=== PATIENT | female | born 1940 | race Caucasian/White ===

== ENCOUNTER 2016-09-26 19:42 | Inpatient (IN) ==
[2016-09-26 21:17] LABS: MANUAL DIFF NEEDED? NO
[2016-09-26 21:19] LABS: BASO% 0.3 % (0.0-0.8); EOS% 2.2 % (0.0-10.0); HEMATOCRIT 30.8 % (37.0-47.0); IMM GRAN# 0.02 X1000 (0.0-0.04); IMM GRAN% 0.1 % (0.0-0.5); LYMPH# 2.71 X1000 (1.2-3.4); LYMPH% 20.1 % (20.5-51.1); MCH 30.7 PG (27-31); MCHC 32.5 g/dL (33-37); MCV 94.5 FL (81-99); MONO# 0.93 X1000 (0.11-0.59); MONO% 6.9 % (1.7-9.3); MPV 8.5 FL (7.4-10.4); NEUT% 70.4 % (42.2-75.2); PLT 521 X1000 (130-400); RBC 3.26 XMIL (4.2-5.4)
[2016-09-26 21:38] LABS: ALBUMIN 3.4 g/dL (3.5-5.0); CALCIUM 9.2 mg/dL (8.8-10.2); POTASSIUM 4.7 mmol/L (3.5-5.1); TOTAL BILIRUBIN 0.23 mg/dL (0.20-1.00); TOTAL PROTEIN 7.9 g/dL (6.3-8.3)
[2016-09-26 22:31] LABS: URINE SOURCE CLEAN CATCH
[2016-09-26 22:33] LABS: BILIRUBIN URINE NEGATIVE (NEGATIVE); BLOOD URINE MODERATE (NEGATIVE); COLOR ORANGE; GLUCOSE URINE NEGATIVE (NEGATIVE); LEUKOCYTES URINE LARGE (NEGATIVE); NITRITE URINE POSITIVE (NEGATIVE); PROTEIN URINE 70 mg/dL (NEGATIVE); SP GRAVITY URINE 1.008; TURBIDITY URINE HAZY (CLEAR); UROBILINOGEN URINE NORMAL (NORMAL)
[2016-09-26 22:35] LABS: URINE MICRO REVIEW NEEDED? YES
[2016-09-26] MEDS ORDERED: ROCEPHIN 1 GM/NS 1 GM/50 ML IVPB IV ONE (22:35)
[2016-09-26 22:58] LABS: UR EPITHELIAL CELLS <10 /HPF (<10); URINE BACTERIA 4+ /HPF; URINE CULTURE NEEDED? YES; URINE RBC TNTC /HPF (<10); URINE WBC TNTC /HPF (<10)
[2016-09-26] MEDS ORDERED: ZOFRAN IV PRN (23:42)
[2016-09-26] MEDS ORDERED: COLACE PO PRN (23:42)
--- NOTE | 2016-09-27 00:44 | ED EKG INTERP ---
This chart was entered by Clyde Wills Scribe, acting as scribe for Gasper Szymanski MD. EKG Interpretation - EKG Time of EKG reading by physician:: 20:44 EKG Read and Signed by:: Gasper Szymanski EKG Interpretation (*Must complete 3 of following elements*): Abnormal (Minimal voltage criteria for LVH, may be normal variant) Rate: 44 Rhythm: Marked sinus bradycardia with marked sinus arrhythmia This chart was documented by the indicated scribe, (Clyde Wills Scribe) and accurately reflects the services I performed and decisions made by me, Gasper Szymanski MD, as attested by the provider's signature.
--- NOTE | 2016-09-27 00:45 | PROVIDER DOCUMENTATION ---
This chart was entered by Clyde Wills Scribe, acting as scribe for Gasper Szymanski MD. HPI-Respiratory General - General Chief Complaint: General Adult Stated Complaint: SHOUDLER PAIN Time Seen by Provider: 09/26/16 20:42 Source: patient Allergies/Adverse Reactions: Patient Allergies Allergy/AdvReac Type Severity Reaction Status Date / Time codeine AdvReac NAUSEA/VOMI Verified 09/26/16 21:42 TING meperidine HCl * AdvReac NAUSEA Verified 09/26/16 21:42 [From Demerol] morphine AdvReac NAUSEA/VOMI Verified 09/26/16 21:42 TING prednisone AdvReac KEEPS HER Verified 09/26/16 21:42 AWAKE Home Medications: Home Medication List Medication Instructions Recorded Confirmed Last Taken Type ATORVAstatin [Lipitor] 1 tab PO DAILY 03/29/14 09/26/16 09/26/16 History Aspirin/Calcium Carbonate/Mag 1 tab PO DAILY 03/29/14 09/26/16 09/26/16 History [Aspirin Buffered 325 mg Tab] Fluoxetine [Prozac] 20 mg PO DAILY 03/29/14 09/26/16 07/27/16 09:00 History Gabapentin 300 mg PO 4XDAY 03/29/14 09/26/16 09/26/16 History Levothyroxine [Synthroid] 50 microgm PO DAILY 03/29/14 09/26/16 09/26/16 History Lisinopril/Hydrochlorothiazide 1 each PO HS 03/29/14 09/26/16 09/26/16 History [Lisinopril-Hctz 20-12.5 mg Tab] Metoprolol [Lopressor] 1 tab PO BID 03/29/14 09/26/16 09/26/16 History Omeprazole 20 mg PO DAILY 03/29/14 09/26/16 09/26/16 History Tramadol [Ultram] 1 tab PO PRN PRN 03/29/14 09/26/16 07/26/16 23:30 History Nitroglycerin [Nitrostat] 0.4 mg SL PRN PRN 02/11/15 09/26/16 07/23/16 14:00 History Acetaminophen [Tylenol] 500 mg PO Q6H PRN PRN 02/12/16 09/26/16 07/26/16 23:30 History Diphenhydramine [Benadryl] 25 mg PO PRN PRN 02/12/16 09/26/16 07/26/16 23:30 History Docusate Sodium [Colace] 100 mg PO PRN PRN 02/12/16 09/26/16 07/26/16 23:30 History Multivitamin,Therapeutic 1 each PO HS 02/12/16 09/26/16 09/26/16 History [Thera-Tabs] Diphenoxylate/Atropine [Lomotil] 1 each PO 4XDAY PRN PRN 07/17/16 09/26/1607/26 23:30 History Piroxicam 20 mg PO DAILY 07/17/16 09/26/16 09/26/16 History - History of Present Illness-Resp Nature of Presenting Problem: Pt is a 76 yof who presents to ER with CC of shortness of breath x1 month. Pt reports that she has started developing worsening shortness of breath over the past month and has also developed generalized weakness/fatigue. On exam, pt is bradycardic and lethargic. Quality of Pain: reports: none Severity in ED: reports: moderate Onset/Duration: reports: other (x1 month) Timing: reports: still present, getting worse Cough Quality/Degree: reports: no cough Associated Symptoms: reports: cough, shortness of breath, short of breath, other (fatigue/lethargy). denies: chest pain/soreness, dizziness, earache, facial pain, fever/chills, flu-like symptoms, headache, heart racing, hurts to breathe, hyperventilating, lightheadedness, muscle/bodyaches, nasal congestion, nasal drainage, sinus pain, sore throat, sweaty, wheezing Similar Symptoms Previously?: Yes Recently seen or treated by another doctor?: No Review of Systems - Adult - REVIEW OF SYSTEMS - ADULT Constitutional: reports: julianque. denies: chills, fever, night sweats, weight gain, weight loss Eyes: reports: no symptoms reported Ears, Nose, Mouth & Throat: reports: no symptoms reported Cardiovascular: denies: chest pain, edema, heart murmur, irregular heart rate, orthopnea, palpitations, poor circulation, PND, syncope Respiratory: reports: shortness of breath. denies: chronic cough, cough, dyspnea on exertion, excessive sputum production, hemoptysis, pleurisy, wheezing Gastrointestinal: reports: no symptoms reported Genitourinary: reports: no symptoms reported Musculoskeletal: reports: no symptoms reported Integumentary: reports: no symptoms reported Neurological: reports: no symptoms reported Psychiatric: reports: no symptoms reported Endocrine: reports: no symptoms reported Hematologic/Lymphatic: reports: no symptoms reported Allergic/Immunologic: reports: no symptoms reported All Other Systems: Reviewed and Negative Past History - Adult - PAST MEDICAL HISTORY-ADULT Review of Records: reports: Nursing Assessment Review, Medications Reviewed Cardiovascular: reports: HTN Gastrointestinal: reports: GERD Musculoskeletal: reports: neck/back injury - IMMUNIZATION STATUS Childhood Immunizations: See Nurse Assessment Flu Vaccine: See Nurse Assessment Physical Exam-General - PHYSICAL EXAM-ADULT Initial Vital Signs Reviewed: Yes - CONSTITUTIONAL General Appearance: appears well, alert, mild distress, lethargic, slow to respond. negative: no apparent distress - EYES Eyes: PERRL/EOMI, pink conjunctivae, fundi clear, no AV nicking. negative: pale conjunctivae, photophobia, sclera injected, scleral icterus - HEAD, EARS, NOSE, MOUTH & THROAT HENMT: normocephalic/atraumatic, moist mucous membranes, normal ENT inspection, TMs normal, pharynx normal. negative: pharyngeal erythema, tonsillar exudate, TM abnormal - NECK Neck: non-tender, full range of motion, supple, normal inspection. negative: C- spine tenderness, limited range of motion, lymphadenopathy - RESPIRATORY Respiratory: chest non-tender, lungs clear, normal breath sounds, no pleuratic chest pain, no respiratory distress, no accessory muscle use - CARDIOVASCULAR Cardiovascular: normal peripheral pulses, bradycardia, systolic murmur. negative: regular rate, rhythm - GASTROINTESTINAL (ABDOMEN) Abdominal Exam: normal bowel sounds, non tender, soft, no organomegaly, no pulsatile mass. negative: abnormal bowel sounds, distended, tenderness - MUSCULOSKELETAL Back Exam: normal inspection, no CVA tenderness, no vertebral tenderness. negative: CVA tenderness, decreased range of motion, ecchymosis, muscle spasm, swelling, vertebral tenderness Extremity: normal range of motion, non-tender, normal gait, normal inspection, no pedal edema, no calf tenderness, normal capillary refill. negative: deformity, erythema, inflammation, swelling, tenderness - SKIN Integumentary: normal turgor, warm/dry, pallor, swelling (bilateral periorbital swelling). negative: normal color, abrasion(s), diaphoresis, ecchymosis, erythema, laceration(s), tenderness, warm - NEUROLOGIC Neurologic: tripoler II-XII nml as tested, grossly normal, no motor/sensory deficits . negative: facial droop, focal weakness, motor weakness, sensory deficit - PSYCHIATRIC Psych/Mental Status: normal thought content, normal thought process, oriented x 3, depressed affect. negative: normal mood/affect Progress - PLAN OF CARE/RESULTS Progress/Plan/Lab Results: Vital Signs - 8 hr 09/26/16 20:23 09/26/16 23:31 Temperature 98.2 F Pulse Rate 36 L 60 Respiratory Rate 20 18 Blood Pressure 102/52 180/85 O2 Sat by Pulse Oximetry 98 94 L Laboratory Results - last 24 hr 09/26/16 09/26/16 09/26/16 21:02 21:02 21:02 WBC 13.49 H RBC 3.26 L Hgb 10.0 L Hct 30.8 L MCV 94.5 MCH 30.7 MCHC 32.5 L RDW Std Deviation 12.9 Plt Count 521 H MPV 8.5 Immature Gran % (Auto) 0.1 Neut % (Auto) 70.4 Lymph % (Auto) 20.1 L [place] % (Auto) 6.9 Eos % (Auto) 2.2 Baso % (Auto) 0.3 Immature Gran # (Auto) 0.02 Neut # (Auto) 9.49 H Lymph # (Auto) 2.71 [place] # (Auto) 0.93 H Eos # (Auto) 0.30 Baso # (Auto) 0.04 Sodium 131 L Potassium 4.7 Chloride 95 L Carbon Dioxide 18 L Anion Gap 18 BUN 43 H Creatinine 2.1 H Estimated GFR/1.73 m2 23 BUN/Creatinine Ratio 20 Glucose 102 Calculated Osmolality 274 Calcium 9.2 Total Bilirubin 0.23 AST 22 ALT 9 L Alkaline Phosphatase 96 Troponin T < 0.010 Total Protein 7.9 Albumin 3.4 L Globulin 4.5 Albumin/Globulin Ratio 0.8 TSH Urine Source Urine Color Urine Turbidity Urine pH Ur Specific [place] Urine Protein Ur Glucose (Stick) Ur Ketones (Stick) Urine Blood Urine Nitrite Urine Bilirubin Urobilinogen Dipstick Urine Leukocytes Urine WBC (Auto) Urine RBC (Auto) U Epithel Cells (Auto) Urine Bacteria (Auto) Urine Crystals Small Round Cells Urine Casts Urine Yeast-like Cells 09/26/16 09/26/16 21:02 22:23 WBC RBC Hgb Hct MCV MCH MCHC RDW Std Deviation Plt Count MPV Immature Gran % (Auto) Neut % (Auto) Lymph % (Auto) [place] % (Auto) Eos % (Auto) Baso % (Auto) Immature Gran # (Auto) Neut # (Auto) Lymph # (Auto) [place] # (Auto) Eos # (Auto) Baso # (Auto) Sodium Potassium Chloride Carbon Dioxide Anion Gap BUN Creatinine Estimated GFR/1.73 m2 BUN/Creatinine Ratio Glucose Calculated Osmolality Calcium Total Bilirubin AST ALT Alkaline Phosphatase Troponin T Total Protein Albumin Globulin Albumin/Globulin Ratio TSH 0.90 Urine Source CLEAN CATCH Urine Color ORANGE Urine Turbidity HAZY Urine pH 7.0 Ur Specific [place] 1.008 Urine Protein 70 A Ur Glucose (Stick) NEGATIVE Ur Ketones (Stick) NEGATIVE Urine Blood MODERATE A Urine Nitrite POSITIVE A Urine Bilirubin NEGATIVE Urobilinogen Dipstick NORMAL Urine Leukocytes LARGE A Urine WBC (Auto) TNTC A Urine RBC (Auto) TNTC A U Epithel Cells (Auto) <10 Urine Bacteria (Auto) 4+ Urine Crystals Not Reportable Small Round Cells Not Reportable Urine Casts Not Reportable Urine Yeast-like Cells NONE SEEN Orders Category Date Time Status Admit - [facility] Routine AdmDCTranf 09/26/16 23:42 Ordered Activity - Up with Assistance ORDERED Care 09/26/16 23:42 Active Currently Rec Anticoagulation [QM] ROUTINE Care 09/26/16 23:42 Active Intake and Output-Strict ORDERED Care 09/26/16 23:42 Active Nursing- MD Consult Request ROUTINE Care 09/26/16 23:42 Active Vital Signs Order Q 6-HR ASSESS Care 09/26/16 23:42 Active Physician/Provider Consults Routine Cons 09/26/16 23:42 Ordered Regular Diet Diet 09/27/16 07:00 Active CHEST-PORTABLE [RAD] Stat Exams 09/26/16 21:[address] THORAX W/O CONTRAST [CT] Stat Exams 09/26/16 23:42 Taken BASIC METABOLIC PANEL [CHEM] Routine Lab 09/27/16 06:00 Ordered CBC WITH DIFF [HEME] Routine Lab 09/27/16 06:00 Ordered CBC WITH ELECTRONIC DIFF [HEME] Stat Lab 09/26/16 21:02 Completed COMPREHENSIVE METABOLIC PANEL [CHEM] Stat Lab 09/26/16 21:02 Completed TROPONIN T Stat Lab 09/26/16 21:02 Completed TSH Stat Lab 09/26/16 21:02 Completed UA NIMS W/REFLEX CULT [URINALYSIS] Stat Lab 09/26/16 22:23 Completed URINE CULTURE [RM] Routine Lab 09/26/16 23:20 Received URINE CULTURE [RM] Stat Lab 09/26/16 23:42 Uncollected URINE MANUAL MICROSCOPIC [URINALYSIS] Stat Lab 09/26/16 22:23 Completed 0.9% Sodium Chloride Inj [Ns] 1,000 ml Med 09/26/16 23:42 Active IV 100 mls/hr ATORVAstatin [Lipitor] Med 09/27/16 21:00 Active 10 mg PO HS Acetaminophen [Tylenol] Med 09/26/16 23:42 Active 500 mg PO Q6H PRN PRN Amlodipine [Norvasc] Med 09/26/16 23:42 Active 5 mg PO BID Aspirin EC Med 09/27/16 09:00 Active 1 mg PO DAILY CefTRIAXONE 1 GM/NS [Rocephin 1 gm/Ns] Med 09/26/16 22:35 Discontinued 1 gm in 50 ml IV NOW CefTRIAXONE 1 GM/NS [Rocephin 1 gm/Ns] Med 09/27/16 23:00 Active 1 gm in 50 ml IV Q24H Docusate Sodium [Colace] Med 09/26/16 23:42 Active 100 mg PO DAILY PRN PRN Fluoxetine [Prozac] Med 09/27/16 09:00 Active 20 mg PO DAILY Gabapentin [Neurontin] Med 09/27/16 09:00 Active 300 mg PO 4XDAY Levothyroxine [Synthroid] Med 09/27/16 07:00 Active 50 microgm PO DAILY@0700 Nitroglycerin Sl [Nitroglycerin] Med 09/26/16 23:42 Active 0.4 mg SL PRN PRN Omeprazole [Prilosec] Med 09/27/16 09:00 Active 20 mg PO DAILY@0700 Ondansetron [Zofran] Med 09/26/16 23:42 Active 4 mg IV Q4H PRN PRN Telemetry [OM.EQ] Routine Oth 09/26/16 23:42 Active EKG [EKG] Stat Ther 09/27/16 07:00 Ordered Echo Spec/Color Dop W/O Contra Routine Ther 09/27/16 08:00 Ordered Transfer/Admit Order [TRANSFER] Routine Transfer 09/26/16 23:06 Completed Result Diagrams: 09/26/16 21:02 09/26/16 21:02 - XRAY 1 XRAY: Bilateral XRAY Study: Chest Impression: See EMR Report XRAY Interpretation: Clear - CONSULTS/PCP/HOSPITALIST Notification #1 *Consult/PCP/Hospitalist*: Dr. Boland ( Drive Man) Time Discussed: 22:08 Consult Disposition: Admit (stop labetolol and admit overnight) #2 Consult: Dr. Guzman (Hospitalist) Time Discussed: 22:40 Consult Disposition: Admit Departure - Departure Time of Disposition Decision: 22:08 DIAGNOSIS: Bradycardia Disposition: ADMITTED INPATIENT 09 Certified Medical Emergency: Emergent Condition: Stable This chart was documented by the indicated scribe, (Clyde Wills Scribe) and accurately reflects the services I performed and decisions made by , Gasper Szymanski MD, as attested by the provider's signature.
[2016-09-27] MEDS: NORVASC PO SCH ×3 (00:55→20:35)
[2016-09-27] MEDS: NS 1,000 ML IV SCH ×5 (00:57→18:43)
[2016-09-27] MEDS: NITROGLYCERIN SL PRN ×3 (02:14→11:29)
[2016-09-27] MEDS: TYLENOL PO PRN ×3 (02:38→18:15)
--- NOTE | 2016-09-27 02:38 | HISTORY AND PHYSICAL ---
PRIMARY CARE PHYSICIAN: Dr. Melvin Bishop. CHIEF COMPLAINT: Shortness of breath, mild chest pain. HISTORY OF PRESENT ILLNESS: This is a 75-year-old female with past medical history of hypertension, hypothyroidism, hyperlipidemia and GERD, who presented to the emergency department complaining of shortness of breath. She reports that during the previous day but getting worse today. She noted short of breath on short distance. So she has got to stop pretty often because of shortness of breath. She denies any fever or chills. She reports mild chest pain in the right side of the thorax. Here in the ER, she was evaluated and found out to have a symptomatic bradycardia with heart rate between [address] Szymanski from the ER has talked with sewing machines salesperson Cardiology who recommends to admit this patient as an observation. PAST MEDICAL HISTORY: 1. Hypertension. 2. Severe osteoarthritis. PAST SURGICAL HISTORY: 1. Bilateral hip replacement. 2. Bilateral knee replacement. SOCIAL HISTORY: She leaves with her son and she denies drinking alcohol, using tobacco or using illicit drugs. ALLERGIES: She is not allergic to any medication but she reports that every time she used opiates that makes her feel nauseated. PHYSICAL EXAMINATION: VITALS: Temperature 98.2 degrees, heart rate 36, respiratory rate 20, blood pressure 102/65, O2 saturation 98% on room air. GENERAL: This is a 76-year-old female lying in bed in no acute distress. HEENT: Head normocephalic, atraumatic. Anicteric sclerae and pale conjunctivae. Mucous membranes moist. Pupils equal, round, and reactive to light and accommodation. NECK: Supple. No JVD noted. No carotid bruits. No lymphadenopathy. No thyromegaly. CARDIOVASCULAR: S1, S2 heard present but bradycardic. No murmurs, gallops, or rubs. RESPIRATORY: Clear bilaterally to auscultation. No work of breathing or using accessory muscles. ABDOMEN: Soft, nontender to palpation. Bowel sounds present. No organomegaly. EXTREMITIES: No clubbing, cyanosis, or edema. Peripheral pulses present in both legs. NEUROLOGICAL: Patient is alert and oriented x3. Able to move 4 extremities. Cranial nerves 2-12 are grossly normal. LABORATORY DATA: White cell count 13.49, hemoglobin 10.0, hematocrit 30.8, platelets 521,000. BMP shows creatinine 2.1 but normal few months ago at 0.6 with positive urinalysis. ASSESSMENT AND PLAN: 1. Symptomatic bradycardia. 2. Acute kidney injury. 3. Urinary tract infection. 4. Hypertension. 5. Patient is going to be admitted to the hospital for symptomatic bradycardia most likely related to metoprolol that she was on not 25 mg p.o. b.i.d. At this time, we are going to of course hold this medication. Cardiology has been informed about this patient and they recommend to admit to the hospital with further recommendations. We will consult Cardiology in the morning. 6. For MARÍA, the renal function was okay a few months ago and I guess because this patient has been on NSAIDs, in this case piroxicam, plus she is on lisinopril the renal function is today the creatinine today is 2.1. We will provide IV fluids and we will check BMP daily. 7. UTI, the patient has received 1 dose of ceftriaxone 1 g IV q.24 hours. We will wait for the results of the final urine culture. 8. Hypertension. We will stop lisinopril and we will add amlodipine 5 mg p.o. b.i.d. 9. Her primary care physician, Dr. Melvin Bishop, or one of his associates will take care of this patient in the morning. cc: MD Melvin Dozier MD MTDD
[2016-09-27] MEDS: PRILOSEC PO SCH (08:27)
[2016-09-27] MEDS: NEURONTIN PO SCH ×4 (08:27→20:35)
[2016-09-27] MEDS: SYNTHROID PO SCH (08:28)
[2016-09-27] MEDS: PROZAC PO SCH (08:28)
[2016-09-27] MEDS ORDERED: ASPIRIN EC PO SCH (09:00)
[2016-09-27] MEDS: ASPIRIN EC PO SCH (09:17)
--- NOTE | 2016-09-27 09:33 | Diag Imaging Result Document ---
PROCEDURE NAME: CHEST-PORTABLE - 09/26/2016 PORTABLE CHEST: COMPARISON: 11/22/2015. FINDINGS: The lungs are well expanded. The heart is mildly prominent. The vessels are not distended. No pneumonia. No pleural effusions identified. IMPRESSION: Cardiomegaly, but no other evidence of congestive failure.
--- NOTE | 2016-09-27 10:28 | Diag Imaging Result Document ---
PROCEDURE NAME: CT THORAX W/O CONTRAST - 09/26/2016 CT CHEST WITHOUT CONTRAST: TECHNIQUE: Dose reduction protocol. FINDINGS: No pleural effusions. The heart is mildly enlarged. The ascending thoracic aorta measures 3.9 cm. Prominent coronary artery calcifications. There are several calcified right hilar lymph nodes. No enlarged mediastinal lymph nodes. There is a calcified granuloma in the right lower lobe. No consolidation. Mild central vascular prominence. No lung mass. Limited images through the upper abdomen reveal a cholecystectomy with either a left upper pole renal cyst or dilated renal pelvis. IMPRESSION: 1. There is evidence of a prior granulomatous infection, but no acute pneumonia. 2. Cardiomegaly with prominent coronary artery calcifications. A preliminary report was given at 12:21 a.m. MTDD
--- NOTE | 2016-09-27 10:32 | PROGRESS NOTE ---
DATE: 09/27/2016 SUBJECTIVE: Ms. Galina Cee was admitted yesterday with shortness of breath. She has a urinary tract infection. She has acute kidney injury and had severe bradycardia. She has mild cardiomegaly. We are going to continue the current management. She is getting IV ceftriaxone, which we will continue. Urine culture has been done. CT scan of the thorax has been ordered. We are going to get the cardiology consult with her, and watch her closely. cc: Melvin Bishop MD
[2016-09-27 11:59] LABS: MANUAL DIFF NEEDED? NO
[2016-09-27 12:23] LABS: BASO% 0.4 % (0.0-0.8); EOS# 0.35 X1000 (0.0-0.7); EOS% 3.2 % (0.0-10.0); HEMATOCRIT 28.4 % (37.0-47.0); HEMOGLOBIN 9.1 g/dL (12.0-16.0); IMM GRAN# 0.02 X1000 (0.0-0.04); IMM GRAN% 0.2 % (0.0-0.5); LYMPH# 1.64 X1000 (1.2-3.4); LYMPH% 14.8 % (20.5-51.1); MCH 30.7 PG (27-31); MCV 95.9 FL (81-99); MONO# 0.62 X1000 (0.11-0.59); MONO% 5.6 % (1.7-9.3); MPV 8.3 FL (7.4-10.4); NEUT% 75.8 % (42.2-75.2); PLT 440 X1000 (130-400); RBC 2.96 XMIL (4.2-5.4)
[2016-09-27 12:30] LABS: POTASSIUM 4.8 mmol/L (3.5-5.1)
--- NOTE | 2016-09-27 13:31 | CONSULTATION ---
DATE OF CONSULTATION: 09/27/2016 IMPRESSION: 1. Marked sinus bradycardia with heart rate between 36 to 50 beats per minute. On beta-lindsey. 2. Hypertension. 3. Atherosclerotic coronary disease. 4. Acute renal dysfunction. 5. Severe osteoarthritis. RECOMMENDATIONS: 1. Monitor on telemetry. 2. Discontinue beta-lindsey. 3. Follow up echocardiography. HISTORY: This 75-year-old, white female, with past history of atherosclerotic coronary disease, hypertension, hypothyroidism, hyperlipidemia and gastroesophageal reflux was admitted to the emergency room last night after she presented with shortness of breath and was noted to have marked sinus bradycardia. She is on beta-lindsey and this has been discontinued. She relates that ever since her knee replacement surgery last November she has been walking with a walker. She describes recently she tends to get short of breath walking short distances. There has been no angina. No orthopnea. She does describe some atypical left lateral chest discomfort aggravated by deep breath and movement of the torso. She relates recent issues with what sounds like obstructive uropathy related to ureteral abnormalities. She has had ureteral stents placed. She came to the emergency room last night with exertional shortness of breath and was noted to have sinus bradycardia, from 36 beats per minute to 50 beats per minute. She was subsequently admitted for observation as beta-lindsey was withdrawn. PAST MEDICAL HISTORY: 1. Atherosclerotic coronary disease. 2. Hypertension. 3. Severe osteoarthritis. 4. 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 PAST SURGICAL HISTORY: 1. Bilateral hip replacement and bilateral knee replacements. ALLERGIES: She is intolerant of opiates which cause nausea. MEDICATIONS: Prior to admission as listed. SOCIAL HISTORY: She lives with her son. She does not smoke or use alcohol. FAMILY HISTORY: Negative for premature coronary disease. REVIEW OF SYSTEMS: Pulmonary: Noteworthy for exertional dyspnea but negative for orthopnea or cough. Gastrointestinal: Negative. Constitutional: Negative. The remainder of review of systems negative/noncontributory with 14 total systems reviewed. PHYSICAL EXAMINATION: General: Obese, older white female, in no distress. Vital Signs: Blood pressure 172/69, heart rate 54 and regular with ECG monitor showing sinus bradycardia. HEENT: Extraocular movements intact. Mucous membranes are moist. Neck: Supple without JV distention. There are no carotid bruits. Chest: Clear to auscultation. Cardiac: A regular rate and rhythm without appreciable murmur or gallop. Abdomen: Soft, nontender. Bowel sounds are normal. Extremities: Without edema. Neurologic: Reveals her to be alert and fully oriented. Speech is fluent. She moves all 4 extremities equally well. Skin: Warm and dry. Psychiatric: Reveals her mood to be appropriate. DIAGNOSTIC DATA: ECG demonstrates sinus bradycardia and voltage criteria for left ventricular hypertrophy. cc: MD Melvin Funk MD
[2016-09-27] MEDS: LIPITOR PO SCH (20:35)
[2016-09-27] MEDS: ROCEPHIN 1 GM/NS 1 GM/50 ML IVPB IV SCH (23:10)
[2016-09-28] MEDS: NITROGLYCERIN SL PRN ×2 (00:02→00:25)
[2016-09-28] MEDS: TYLENOL PO PRN ×2 (00:02→06:19)
[2016-09-28] MEDS: NS 1,000 ML IV SCH ×2 (05:00→15:42)
[2016-09-28] MEDS: SYNTHROID PO SCH (06:14)
[2016-09-28] MEDS: PRILOSEC PO SCH (06:14)
[2016-09-28 06:20] LABS: CALCIUM 8.8 mg/dL (8.8-10.2); POTASSIUM 4.3 mmol/L (3.5-5.1)
[2016-09-28] MEDS: APRESOLINE PO SCH ×3 (08:22→16:44)
[2016-09-28] MEDS: NORVASC PO SCH ×2 (08:22→20:31)
[2016-09-28] MEDS: ASPIRIN EC PO SCH (08:22)
[2016-09-28] MEDS: NEURONTIN PO SCH ×4 (08:22→20:31)
[2016-09-28] MEDS: PROZAC PO SCH (08:22)
--- NOTE | 2016-09-28 10:11 | ECHO REPORT ---
ORDER DATE: 09/27/2016 ECHOCARDIOGRAM: MEASUREMENTS: Left ventricular end-diastolic diameter 4.7, end-systolic diameter 2.5, posterior wall thickness 1.5, septal thickness 1.5, left atrium 4.9, aortic root 3.2. SUMMARY: 1. Adequate quality study. 2. Trileaflet aortic valve demonstrates mild sclerosis with adequate opening and peak instantaneous gradient of 10 mmHg. There is trace aortic regurgitation. Mild mitral annular calcification is demonstrated. There is mild to moderate mitral regurgitation. Tricuspid valve is without structural abnormality with mild tricuspid regurgitation. The estimated systolic PA pressure by Doppler is 45 mmHg. The aortic root is normal size. 3. Normal left ventricular chamber size with mild concentric left hypertrophy is demonstrated. Estimated left ventricular ejection fraction is 65%. No regional wall motion abnormalities are evident. Left atrium is moderately enlarged. Right atrium and right ventricle are normal size with normal right ventricular systolic function. 4. No pericardial effusion. 5. Appearance of inferior vena cava suggests normal central venous pressure. CONCLUSIONS: 1. Aortic valve sclerosis without stenosis with trace aortic regurgitation. 2. Mild mitral annular calcification with [id number] mitral regurgitation. 3. Mild tricuspid regurgitation with moderate pulmonary hypertension suggested by Doppler. 4. Mild concentric left hypertrophy with estimated left ventricular ejection fraction of 65%. 5. Moderate left atrial enlargement. cc: MD Dilshad Funk MD Amit V. Vora, MD
--- NOTE | 2016-09-28 10:29 | PROGRESS NOTE ---
DATE: 09/28/2016 Ms. Cee has a urinary tract infection. She continues to have some interscapular chest pain. Her vital signs are stable. Her heart rate has come up some. Overall condition is improving. She has a urinary tract infection as well as dehydration with some renal failure. We are going to continue the current management on her. cc: Melvin Bishop MD
[2016-09-28] MEDS: NORCO-5 PO PRN ×2 (11:25→21:31)
--- NOTE | 2016-09-28 18:24 | PROGRESS NOTE ---
DATE: 09/28/2016 SUBJECTIVE: Patient continues without chest discomfort or dyspnea. OBJECTIVE: Vital signs: Blood pressure 178/65, heart rate 60 and regular with ECG monitor showing sinus rhythm. Neck: There is no significant jugular venous distention. Chest: Clear to auscultation. Cardiac Exam: A regular rate and rhythm without appreciable murmur or gallop. There is no evidence of peripheral edema. DIAGNOSTIC STUDIES: Echocardiography noteworthy for mild to moderate mitral regurgitation, mild tricuspid regurgitation with moderate pulmonary hypertension, mild concentric left hypertrophy with left ventricular ejection fraction of 65%, and moderate left atrial enlargement. IMPRESSIONS: 1. Sinus bradycardia, improved after discontinuation of beta lindsey. 2. Hypertensive cardiovascular disease. 3. Atherosclerotic coronary disease. 4. Acute renal dysfunction. RECOMMENDATIONS: 1. Continue off beta lindsey. 2. Increase hydralazine as needed to achieve better blood pressure control. cc: MD Melvin Funk MD
[2016-09-28] MEDS: LIPITOR PO SCH (20:31)
[2016-09-28] MEDS: ROCEPHIN 1 GM/NS 1 GM/50 ML IVPB IV SCH (22:46)
[2016-09-29] MEDS: NS 1,000 ML IV SCH ×3 (02:18→23:33)
[2016-09-29 05:51] LABS: CALCIUM 8.9 mg/dL (8.8-10.2); POTASSIUM 4.5 mmol/L (3.5-5.1)
--- NOTE | 2016-09-29 06:03 | EKG Report ---
Test Performed on : 09/27/2016 08:38:38 AM Test Reason : chest pain Blood Pressure : / mmHG Vent. Rate : 052 BPM Atrial Rate : 052 BPM P-R Int : 186 ms QRS Dur : 090 ms QT Int : 490 ms P-R-T Axes : 056 -07 031 degrees QTc Int : 455 ms Sinus bradycardia. Moderate voltage criteria for LVH, may be normal variant Borderline ECG When compared with ECG of 26-SEP-2016 20:38, (Unconfirmed) No significant change was found Confirmed by Domo VARNER, Raphael Nagy ([id number]) on 09/29/2016 6:35:33 PM
[2016-09-29] MEDS: SYNTHROID PO SCH (06:17)
[2016-09-29] MEDS: PRILOSEC PO SCH (06:17)
--- NOTE | 2016-09-29 07:12 | EKG Report ---
Test Performed on : 09/29/2016 06:55:00 AM Test Reason : CP Blood Pressure : / mmHG Vent. Rate : 061 BPM Atrial Rate : 061 BPM P-R Int : 164 ms QRS Dur : 088 ms QT Int : 426 ms P-R-T Axes : 056 -11 041 degrees QTc Int : 428 ms Normal sinus rhythm. Minimal voltage criteria for LVH, may be normal variant Borderline ECG When compared with ECG of 27-SEP-2016 08:38, (Unconfirmed) No significant change was found Confirmed by Domo VARNER, Raphael Nagy ([id number]) on 09/29/2016 6:52:51 PM
--- NOTE | 2016-09-29 09:01 | PROGRESS NOTE ---
DATE: 09/29/2016 Ms. Cee is feeling somewhat better. She has gram-negative organism bacteria coming out of the urine. The identification is still pending. Culture and sensitivity is still pending. Her BUN and creatinine are getting better. She does not have any chest pain. Blood pressure is still fluctuating. Heart rate is staying around 60. She is on hydralazine and Norvasc, and IV Rocephin. Overall condition is unchanged. We will continue with the current management on her. cc: Melvin Bishop MD
[2016-09-29] MEDS: NEURONTIN PO SCH ×5 (09:11→23:33)
[2016-09-29] MEDS: APRESOLINE PO SCH ×3 (09:11→16:51)
[2016-09-29] MEDS: NORVASC PO SCH ×3 (09:12→23:33)
[2016-09-29] MEDS: PROZAC PO SCH (09:12)
[2016-09-29] MEDS: ASPIRIN EC PO SCH (09:12)
[2016-09-29] MEDS: NORCO-5 PO PRN (16:51)
[2016-09-29] MEDS: NITROGLYCERIN SL PRN (16:55)
[2016-09-29] MEDS: LIPITOR PO SCH ×2 (19:31→23:33)
[2016-09-29] MEDS: TYLENOL PO PRN (19:31)
[2016-09-29] MEDS: ROCEPHIN 1 GM/NS 1 GM/50 ML IVPB IV SCH ×2 (19:32→23:33)
[2016-09-30] MEDS: NORCO-5 PO PRN (02:35)
--- NOTE | 2016-09-30 04:26 | PROGRESS NOTE ---
DATE: 09/29/2016 SUBJECTIVE: Patient continues without chest discomfort or dyspnea. OBJECTIVE: Vital Signs: Blood pressure 168/78, heart rate 67 and regular. Neck: There is no significant jugular venous distention. Chest: Clear to auscultation. Cardiac: Regular rate and rhythm, without appreciable murmur or gallop. There is no evidence of peripheral edema. DIAGNOSTIC DATA: Echocardiography noteworthy for [id number] mitral regurgitation, mild tricuspid regurgitation, with moderate pulmonary hypertension. Mild concentric left ventricular hypertrophy, and estimated left ventricular ejection fraction of 65%. Moderate left atrial enlargement. IMPRESSION: 1. Sinus bradycardia, improved after discontinuation of beta lindsey. 2. Hypertensive cardiovascular disease. Systolic blood pressure [id number] elevated on current regimen. 3. Atherosclerotic coronary disease. 4. Acute renal dysfunction. 5. Urinary tract infection. RECOMMENDATIONS: 1. Continue off beta lindsey. 2. Continue amlodipine at current dose and increase hydralazine as needed to achieve good blood pressure control. 3. Will defer this to primary team. Will see further on an as needed basis. cc: MD Melvin Funk MD
[2016-09-30] MEDS: NS 1,000 ML IV SCH ×2 (09:33→15:00)
[2016-09-30] MEDS: PROZAC PO SCH (09:34)
[2016-09-30] MEDS: PRILOSEC PO SCH (09:34)
[2016-09-30] MEDS: APRESOLINE PO SCH ×3 (09:34→21:00)
[2016-09-30] MEDS: ASPIRIN EC PO SCH (09:34)
[2016-09-30] MEDS: SYNTHROID PO SCH (09:34)
[2016-09-30] MEDS: NEURONTIN PO SCH ×4 (09:34→21:00)
[2016-09-30] MEDS: NORVASC PO SCH ×2 (09:35→21:00)
--- NOTE | 2016-09-30 14:20 | PROGRESS NOTE ---
DATE: 09/30/2016 Ms. Cee is doing somewhat better. She complains of swelling of the hands. 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 Her lungs are clear. Heart sounds are normal. She has some renal failure, has UTI. She has been getting IV Rocephin. We will continue that. Repeat the Chem-7 in the morning. cc: Melvin Bishop MD
[2016-09-30] MEDS: ROCEPHIN 1 GM/NS 1 GM/50 ML IVPB IV SCH (21:00)
[2016-09-30] MEDS: LIPITOR PO SCH (21:00)
[2016-09-30] MEDS: TYLENOL PO PRN (22:14)
[2016-09-30] MEDS: NITROGLYCERIN SL PRN ×2 (22:15→22:26)
[2016-10-01] MEDS: NORCO-5 PO PRN ×3 (02:01→20:37)
[2016-10-01] MEDS: NS 1,000 ML IV SCH ×3 (02:34→20:40)
[2016-10-01] MEDS: SYNTHROID PO SCH (06:24)
[2016-10-01] MEDS: PRILOSEC PO SCH (06:24)
[2016-10-01 07:03] LABS: CALCIUM 8.9 mg/dL (8.8-10.2); POTASSIUM 4.3 mmol/L (3.5-5.1)
[2016-10-01] MEDS: NEURONTIN PO SCH ×4 (09:06→20:46)
[2016-10-01] MEDS: NORVASC PO SCH ×2 (09:06→20:46)
[2016-10-01] MEDS: PROZAC PO SCH (09:06)
[2016-10-01] MEDS: ASPIRIN EC PO SCH (09:06)
[2016-10-01] MEDS: CATAPRES PO SCH ×2 (09:09→20:46)
[2016-10-01] MEDS: PRINIVIL PO SCH (09:09)
--- NOTE | 2016-10-01 10:03 | PROGRESS NOTE ---
DATE: 10/01/2016 SUBJECTIVE: Ms. Cee is doing somewhat better; however her blood pressure has been fluctuating. She has some intermittent chest pains. Blood pressure is going up; it was up to 200 when she had chest pain earlier this morning and it was 190. We are going to cut down on the hydralazine and add lisinopril and clonidine. Will see the change. We cannot give beta blockers on account of her extreme sensitivity for bradycardia: In the meantime, we will continue IV antibiotics. cc: Melvin Bishop MD
[2016-10-01] MEDS: NITROGLYCERIN SL PRN ×2 (10:47→10:54)
[2016-10-01] MEDS: TYLENOL PO PRN (10:57)
[2016-10-01] MEDS: APRESOLINE PO SCH ×2 (12:45→20:46)
[2016-10-01] MEDS: NITROGLYCERIN TOP PRN (14:43)
[2016-10-01] MEDS: ROCEPHIN 1 GM/NS 1 GM/50 ML IVPB IV SCH (20:44)
[2016-10-01] MEDS: LIPITOR PO SCH (20:46)
[2016-10-02] MEDS: NITROGLYCERIN TOP PRN (00:10)
[2016-10-02] MEDS: TYLENOL PO PRN ×2 (00:11→18:24)
--- NOTE | 2016-10-02 05:23 | EKG Report ---
Test Performed on : 10/01/2016 5:04:58 PM Test Reason : chest pain Blood Pressure : / mmHG Vent. Rate : 072 BPM Atrial Rate : 072 BPM P-R Int : 154 ms QRS Dur : 084 ms QT Int : 374 ms P-R-T Axes : 059 -20 104 degrees QTc Int : 409 ms Normal sinus rhythm. Minimal voltage criteria for LVH, may be normal variant Nonspecific T wave abnormality (lateral T wave flattening) Abnormal ECG When compared with ECG of 29-SEP-2016 06:55, Nonspecific T wave abnormality, worse in Lateral leads Confirmed by Domo VARNER, Raphael Nagy ([id number]) on 10/02/2016 8:23:20 AM
[2016-10-02] MEDS: APRESOLINE PO SCH ×3 (05:27→20:54)
[2016-10-02] MEDS: SYNTHROID PO SCH (06:32)
[2016-10-02] MEDS: PRILOSEC PO SCH (06:32)
[2016-10-02] MEDS: NS 1,000 ML IV SCH (06:33)
[2016-10-02] MEDS ORDERED: LASIX IV ONE (09:00)
[2016-10-02] MEDS: CATAPRES PO SCH ×2 (09:26→20:53)
[2016-10-02] MEDS: NORVASC PO SCH ×2 (09:26→20:53)
[2016-10-02] MEDS: ASPIRIN EC PO SCH (09:26)
[2016-10-02] MEDS: PROZAC PO SCH (09:26)
[2016-10-02] MEDS: NEURONTIN PO SCH ×4 (09:26→20:53)
[2016-10-02] MEDS: PRINIVIL PO SCH (09:26)
--- NOTE | 2016-10-02 09:49 | PROGRESS NOTE ---
DATE: 10/02/2016 Ms. Cee is doing better. Her blood pressure is better. She still has some chest pain. Enzymes are negative. EKG is unremarkable. She has swelling of her face as well as in her arms and extremities. This could be because of fluid retention. We will discontinue the fluid and give her IV Lasix. She may need a repeat evaluation by the storeroom clerk. I think the nurse has notified the storeroom clerk service. cc: Melvin Bishop MD
[2016-10-02] MEDS: ROCEPHIN 1 GM/NS 1 GM/50 ML IVPB IV SCH (20:52)
[2016-10-02] MEDS: LIPITOR PO SCH (20:53)
[2016-10-03] MEDS: APRESOLINE PO SCH ×2 (05:36→14:38)
[2016-10-03] MEDS: SYNTHROID PO SCH (06:28)
[2016-10-03] MEDS: PRILOSEC PO SCH (06:28)
[2016-10-03 07:40] LABS: CALCIUM 9.1 mg/dL (8.8-10.2); POTASSIUM 4.7 mmol/L (3.5-5.1)
[2016-10-03] MEDS ORDERED: LASIX IV ONE (08:05)
[2016-10-03] MEDS ORDERED: DIFLUCAN PO SCH (09:00)
[2016-10-03] MEDS: PRINIVIL PO SCH (09:43)
[2016-10-03] MEDS: PROZAC PO SCH (09:43)
[2016-10-03] MEDS: NORVASC PO SCH (09:43)
[2016-10-03] MEDS: CATAPRES PO SCH (09:44)
[2016-10-03] MEDS: NEURONTIN PO SCH ×2 (09:44→14:38)
[2016-10-03] MEDS: ASPIRIN EC PO SCH (09:45)
--- NOTE | 2016-10-03 10:56 | PROGRESS NOTE ---
DATE: 10/03/2016 SUBJECTIVE: Ms. Cee is doing fairly well. She continues to have some puffiness of the eyelids, which could be because of fluid retention or could be because of Norvasc that she is on. OBJECTIVE: Lungs: Sound clear. Heart: Sounds are normal. ASSESSMENT: There is no evidence of chest pain. PLAN: I am going to discharge her today upon her request. She wants to go to rehabilitation at [facility]; however, she wants to go home first, so we will give some Lasix today and then discharge her. cc: Melvin Bishop MD
--- NOTE | 2016-10-03 11:11 | DISCHARGE SUMMARY ---
ADMISSION DATE: 09/28/2016 DISCHARGE DATE: 10/03/2016 HISTORY OF PRESENT ILLNESS: Ms. Cee is a 76-year-old white female who was admitted for symptomatic bradycardia, acute a kidney injury, and acute urinary tract infection as well as uncontrolled hypertension. DIAGNOSTIC DATA IN THE HOSPITAL: CT scan of the chest revealed evidence of prior granulomatous infection, cardiomegaly with some prominent coronary calcification. Echocardiogram revealed aortic valve sclerosis, some mild to moderate mitral regurgitation. Ejection fraction was around 65%. Systolic PA pressure by Doppler was 45 mm. Moderate left atrial enlargement was noted. The EKG had revealed normal sinus rhythm, voltage criteria positive for LVH, nonspecific T-wave changes present. COURSE IN THE HOSPITAL: She was treated with IV Rocephin for urinary tract infection. IV fluids were given. BUN and creatinine levels continued to come down. She does have problems with some hydronephrosis and she is followed actively by Dr. Rocha. She had a Cardiology consultation by Dr. Jermaine Boland and he changed the blood pressure medications. She continued to have some chest pains. 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 Her blood pressure was somewhat unstable. She has some problems with edema and puffiness of the face. Physical examination was otherwise unchanged. She wants to go to rehabilitation, however, after going home. We will be discharging her upon request today. Her blood pressure medicine will be Norvasc 10 mg daily; lisinopril 10/12.5 once daily; hydralazine 25 mg t.i.d.; clonidine 0.1 mg b.i.d.; and she will be using nitroglycerin ointment 1 inch twice a day. FINAL DIAGNOSES: 1. Uncontrolled hypertension. 2. Urinary tract infection. 3. Early renal failure. 4. Symptomatic bradycardia. She was on Lopressor, which we have stopped. We will see her in the office in about the next 3-4 days and then decide about the rehabilitation. cc: Melvin Bishop MD
[2016-10-03 14:35] VITALS: BP 141/65
[2016-10-03] MEDS ORDERED: FLEET ENEMA PR ONE (14:35)
== END 2016-10-03 16:56 ==
LOC: ED 19:42 → EDIPHOLD 19:42 → INTOOBSV 23:34 → OBSVTOIN 23:34 → SUATTDRO 23:34 → 3S 09-27 21:09 → 3N 09-29 10:23
PROVIDERS: ADMIT Internal Medicine; ATTEND Internal Medicine